=== PATIENT | female | born 1995 | race Caucasian/White ===

== ENCOUNTER 2018-07-25 14:05 | Emergency (ER) | payer MEDICAID ==
[2018-07-25] MEDS ORDERED: OXYCODONE/APAP 5/325 TAB PO ONE (15:44)
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
[2018-07-25 17:35] VITALS: BP 126/70
== END 2018-07-25 17:34 | disposition home or self-care (01) ==
DX: S29.012A Strain of muscle and tendon of back wall of thorax, initial encounter (principal); S63.641A Sprain of metacarpophalangeal joint of right thumb, initial encounter; S30.0XXA Contusion of lower back and pelvis, initial encounter; S60.511A Abrasion of right hand, initial encounter; V03.99XA Pedestrian with other conveyance injured in collision with car, pick-up truck or van, unspecified whether traffic or nontraffic accident, initial encounter; Y92.410 Unspecified street and highway as the place of occurrence of the external cause; Y99.8 Other external cause status
CPT/HCPCS: L3807